=== PATIENT | male | born 1960 | race Asian ===

== ENCOUNTER 2022-06-24 08:58 | Emergency (ER) | payer OTHER ==
[~2022-06-24] VITALS: Ht 165.1 cm; Wt 77.1 kg
[2022-06-24 09:14] VITALS: BP 153/96; TEMP 97.3
== END 2022-06-24 10:18 | disposition home or self-care (01) ==
LOC: ED 08:58
DX: I10 Essential (primary) hypertension (principal)
CPT/HCPCS: 99281